=== PATIENT | male | born 2000 | race Caucasian/White ===

== ENCOUNTER 2018-07-04 13:51 | Emergency (ER) | payer BC ==
[2018-07-04] MEDS ORDERED: Sodium Chloride 0.9% 10 ML Syringe FLUSH PRN (14:20)
[2018-07-04] MEDS ORDERED: Sodium Chloride 0.9% 1,000 ML IV ONE ×2 (14:22→14:24)
[2018-07-04] MEDS ORDERED: Ondansetron 4 MG/2 ML SDV IVPUSH ONE (14:23)
[2018-07-04] MEDS ORDERED: Pantoprazole 40 MG Vial IVPUSH ONE (14:28)
[2018-07-04] MEDS ORDERED: cefTRIAXone 2 GM Vial IVPUSH ONE (14:46)
--- NOTE | 2018-07-04 14:51 | EDM.PDOC ---
ED HPI GENERAL MEDICAL PROBLEM - General Chief Complaint: Respiratory Problem Stated Complaint: Fever; Produtive cough; N/V Time Seen by Provider: 07/04/18 13:59 Source of Information: Reports: Patient, Old Records, RN, RN Notes Reviewed History Limitations: Reports: No Limitations - History of Present Illness INITIAL COMMENTS - FREE TEXT/NARRATIVE: Patient presents to the ED at [facility] for productive cough, fevers, and nausea and vomiting that started last week. He was seen by me at the [facility] on 07/01/2018 and was diagnosed and treated for CAP. Patient states since then, he has not been able to eat or drink due to worsening symptoms with nausea and vomiting. He has tried taking his antibiotics but has not been able to keep the pills down. He has not been drinking very much at all. He states he feels acid reflux since not being able to eat. He denies any eye or ear symptoms. His cough is somewhat productive. He feels very fatigue and has mild weakness. He states it is difficulty to walk up and down steps due to feeling weak and fatigued. He denies any diarrhea. No chest pain. SOB with coughing. No focal neurological problems. Diagnostic studies in the clinic showed a normal WBC count of 8.8. Chemistries were normal. Strep was negative. 2V chest revealed a developing RLL Pneumonia. Patient was started on PO Augmentin for 10 days. - Related Data Allergies Allergy/AdvReac Type Severity Reaction Status Date / Time No Known Allergies Allergy Verified 07/04/18 14:41 Home Meds: Home Meds Azithromycin [Zithromax] 250 mg PO DAILY 4 Days #4 tab 07/04/18 [Rx] ISOtretinoin [Claravis] 1 cap PO BID 07/04/18 [History] Past Medical History - Past Health History Medical/Surgical History: Denies Medical/Surgical History Social & Family History - Family History Family Medical History: Noncontributory - Tobacco Use Smoking Status *Q: Never Smoker - Caffeine Use Caffeine Use: Reports: Energy Drinks - Alcohol Use Alcohol Use History: Yes Alcohol Use in Last Twelve Months: Yes Alcohol Use Frequency: Socially - Recreational Drug Use Recreational Drug Use: No Drug Use in Last 12 Months: No - Living Situation & Occupation Living situation: Reports: Single Occupation: Student ED ROS GENERAL - Review of Systems Review Of Systems: See Below Constitutional: Reports: Fever, Chills, Weakness, Fatigue, Decreased Appetite HEENT: Reports: No Symptoms Respiratory: Reports: Cough, Sputum. Denies: Shortness of Breath Cardiovascular: Denies: Chest Pain, Palpitations GI/Abdominal: Reports: Nausea, Vomiting. Denies: Abdominal Pain, Diarrhea Skin: Reports: No Symptoms Neurological: Reports: No Symptoms ED EXAM, GENERAL - Physical Exam Exam: See Below Exam Limited By: No Limitations General Appearance: Alert, No Apparent Distress Eye Exam: Bilateral Eye: Normal Inspection, PERRL Ears: Normal External Exam, Normal Canal, Normal TMs Ear Exam: Bilateral Ear: TM normal Throat/Mouth: Normal Inspection, Normal Oropharynx, No Airway Compromise Neck: Supple Respiratory/Chest: No Respiratory Distress, Decreased Breath Sounds (RLL), Crackles (bibasilar), Rhonchi Cardiovascular: Normal Peripheral Pulses, Regular Rate, Rhythm Peripheral Pulses: 2+: Radial (L), Radial (R) GI/Abdominal: Normal Bowel Sounds, Soft, Non-Tender Neurological: Alert, Oriented Skin Exam: Warm, Dry, Intact, Normal Color Course - Vital Signs Last Recorded V/S: Last Vital Signs Temp 38.3 C H 07/04/18 13:55 Pulse 89 07/04/18 13:55 Resp 16 07/04/18 13:55 BP 113/71 07/04/18 13:55 Pulse Ox 94 L 07/04/18 13:55 - Orders/Labs/Meds Orders: Active Orders 24 hr Category Date Time Status Chest 2V [CR] Stat Exams 07/04/18 14:23 Taken CULTURE BLOOD [BC] Stat Lab 07/04/18 14:32 Received CULTURE BLOOD [BC] Stat Lab 07/04/18 14:38 Received CULTURE URINE [RM] Stat Lab 07/04/18 14:30 Ordered UA W/MICROSCOPIC [URIN] Stat Lab 07/04/18 14:29 Ordered Azithromycin [Take Home: Azithromycin 250 MG, 2 Tab Med 07/04/18 15:19 Once Pack] 1 packet PO ONETIME ONE Sodium Chloride 0.9% [Normal Saline] 1,000 ml Med 07/04/18 14:22 Active IV ONETIME Sodium Chloride 0.9% [Normal Saline] 1,000 ml Med 07/04/18 14:24 Active IV ONETIME Sodium Chloride 0.9% [Saline Flush] Med 07/04/18 14:20 Active 10 ml FLUSH ASDIRECTED PRN Blood Culture x2 Reflex Set [OM.PC] Stat Oth 07/04/18 14:20 Ordered Peripheral IV Insertion Adult [OM.PC] Routine Oth 07/04/18 14:20 Ordered Medication Orders Azithromycin (Take Home: Azithromycin 250 Mg, 2 Tab Pack) 1 packet PO ONETIME ONE Stop: 07/04/18 15:20 Sodium Chloride (Normal Saline) 1,000 mls @ 999 mls/hr IV ONETIME ONE Stop: 07/04/18 15:22 Last Admin: 07/04/18 14:50 Dose: 999 mls/hr Sodium Chloride (Normal Saline) 1,000 mls @ 999 mls/hr IV ONETIME ONE Stop: 07/04/18 15:24 Sodium Chloride (Saline Flush) 10 ml FLUSH ASDIRECTED PRN PRN Reason: Keep Vein Open Labs: Laboratory Tests 07/04/18 07/04/18 07/04/18 Range/Units 14:32 14:32 14:32 WBC 8.3 (4.0-10.0) x10^3/uL RBC 4.82 (4.5-6.0) x10^6/uL Hgb 14.7 (14.0-18.0) g/dL Hct 40.7 (40.0-52.0) % MCV 84.4 (78.0-93.0) fL MCH 30.5 (26.0-32.0) pg MCHC 36.1 H (32.0-36.0) g/dL RDW Coeff of Sindi 11.9 (10.0-15.0) % Plt Count 216 (130-400) x10^3/uL Neut % (Auto) 72.4 (50.0-80.0) % Lymph % (Auto) 16.6 L (25.0-50.0) % Reeves % (Auto) 8.8 (2.0-11.0) % Eos % (Auto) 1.8 (0.0-4.0) % Baso % (Auto) 0.4 (0.2-1.2) % Sodium 135 L (136-145) mmol/L Potassium 3.8 (3.5-5.1) mmol/L Chloride 98 (98-107) mmol/L Carbon Dioxide 27 (21-32) mmol/L Anion Gap 13.8 (10-20) mmol/L BUN 11 (7-18) mg/dL Creatinine 1.0 (0.70-1.30) mg/dL Est Cr Clr Drug Dosing TNP Estimated GFR (MDRD) > 60 Glucose 89 (74-106) mg/dL Lactic Acid 1.0 (0.4-2.0) mmol/L Calcium 8.8 (8.5-10.1) mg/dL Corrected Calcium 9.28 (8.5-10.1) mg/dL Total Bilirubin 0.6 (0.2-1.0) mg/dL AST 21 (15-37) U/L ALT 21 (16-63) U/L Alkaline Phosphatase 69 (46-116) U/L C-Reactive Protein 6.7 H (<=0.9) mg/dL Total Protein 7.6 (6.4-8.2) g/dL Albumin 3.4 (3.4-5.0) g/dL Globulin 4.2 Albumin/Globulin Ratio 0.81 Meds: Medications Generic Name Dose Route Start Last Admin Trade Name Freq PRN Reason Stop Dose Admin Azithromycin 1 packet 07/04/18 15:19 Take Home: Azithromycin 250 Mg, 2 Tab Pack PO 07/04/18 15:20 ONETIME ONE Sodium Chloride 1,000 mls @ 999 mls/hr 07/04/18 14:22 07/04/18 14:50 Normal Saline IV 07/04/18 15:22 999 mls/hr ONETIME ONE Administration Sodium Chloride 1,000 mls @ 999 mls/hr 07/04/18 14:24 Normal Saline IV 07/04/18 15:24 ONETIME ONE Sodium Chloride 10 ml 07/04/18 14:20 Saline Flush FLUSH ASDIRECTED PRN Keep Vein Open Discontinued Medications Generic Name Dose Route Start Last Admin Trade Name Freq PRN Reason Stop Dose Admin Ceftriaxone Sodium 2 gm 07/04/18 14:46 07/04/18 14:55 Rocephin IVPUSH 07/04/18 14:47 2 gm STAT ONE Administration Guaifenesin/Codeine Phosphate 5 ml 07/04/18 15:01 07/04/18 15:08 Robitussin Ac PO 07/04/18 15:02 5 ml ONETIME ONE Administration Ondansetron HCl 4 mg 07/04/18 14:23 07/04/18 14:50 Zofran IVPUSH 07/04/18 14:24 4 mg ONETIME ONE Administration Pantoprazole Sodium 40 mg 07/04/18 14:28 07/04/18 14:51 Protonix Iv IVPUSH 07/04/18 14:29 40 mg ONETIME ONE Administration Promethazine HCl/Codeine 2 packet 07/04/18 15:11 Take Home: Codeine/Prometh 10-6.25 Mg, 2 Pack PO 07/04/18 15:12 ONETIME ONE - Radiology Interpretation Free Text/Narrative:: CXR: RIGHT LOWER LOBE PNEUMONIA SEE SCANNED DOCUMENT IN EMR Departure - Departure Time of Disposition: 15:24 Disposition: Home, Self-Care 01 Condition: Good Clinical Impression: Pneumonia Qualifiers: Pneumonia type: due to unspecified organism Laterality: right Lung location: lower lobe of lung Qualified Code(s): J18.1 - Lobar pneumonia, unspecified organism - Discharge Information *PRESCRIPTION DRUG MONITORING PROGRAM REVIEWED*: Not Applicable *COPY OF PRESCRIPTION DRUG MONITORING REPORT IN PATIENT KATIE: Not Applicable Prescriptions: Azithromycin [Zithromax] 250 mg PO DAILY 4 Days #4 tab Instructions: Community-Acquired Pneumonia, Adult Referrals: Bolivar Byrd NP [Primary Care Provider] - 07/13/18 (RECHECK CHEST XRAY TO ENSOURE RESOLUTION OF PNEUMONIA) Forms: ED Department Discharge - Problem List Review Problem List Initiated/Reviewed/Updated: Yes - My Orders Last 24 Hours: My Active Orders 07/04/18 14:20 Sodium Chloride 0.9% [Saline Flush] 10 ml FLUSH ASDIRECTED PRN Blood Culture x2 Reflex Set [OM.PC] Stat Peripheral IV Insertion Adult [OM.PC] Routine 07/04/18 14:22 Sodium Chloride 0.9% [Normal Saline] 1,000 ml IV ONETIME 07/04/18 14:23 Chest 2V [CR] Stat 07/04/18 14:24 Sodium Chloride 0.9% [Normal Saline] 1,000 ml IV ONETIME 07/04/18 14:29 UA W/MICROSCOPIC [URIN] Stat 07/04/18 14:30 CULTURE URINE [RM] Stat 07/04/18 14:32 CULTURE BLOOD [BC] Stat 07/04/18 14:38 CULTURE BLOOD [BC] Stat 07/04/18 15:19 Azithromycin [Take Home: Azithromycin 250 MG, 2 Tab Pack] 1 packet PO ONETIME ONE - Assessment/Plan Last 24 Hours: My Active Orders 07/04/18 14:20 Sodium Chloride 0.9% [Saline Flush] 10 ml FLUSH ASDIRECTED PRN Blood Culture x2 Reflex Set [OM.PC] Stat Peripheral IV Insertion Adult [OM.PC] Routine 07/04/18 14:22 Sodium Chloride 0.9% [Normal Saline] 1,000 ml IV ONETIME 07/04/18 14:23 Chest 2V [CR] Stat 07/04/18 14:24 Sodium Chloride 0.9% [Normal Saline] 1,000 ml IV ONETIME 07/04/18 14:29 UA W/MICROSCOPIC [URIN] Stat 07/04/18 14:30 CULTURE URINE [RM] Stat 07/04/18 14:32 CULTURE BLOOD [BC] Stat 07/04/18 14:38 CULTURE BLOOD [BC] Stat 07/04/18 15:19 Azithromycin [Take Home: Azithromycin 250 MG, 2 Tab Pack] 1 packet PO ONETIME ONE Assessment:: RIGHT LOWER LOBE PNEUMONIA NAUSEA AND VOMITING DEHYDRATION Plan: WILL HAVE PATIENT STOP TAKING THE AUGMENTIN. SWITCH TO PO AZITHROMYCIN FOR 5 DAYS. START CODEINE/PROMETHAZINE. LOTS OF WATER. REST. COUGH AND DEEP BREATH SEVERAL TIMES AN HOURS. F/U WITH PCP IN 10 DAYS FOR REPEAT CHEST TO ENSURE RESOLUTION OF PNEUMONIA
[2018-07-04] MEDS ORDERED: Codeine/guaiFENesin 100-10 MG/5 ML Syrup 5 ML Cup PO ONE (15:01)
[2018-07-04 15:02] LABS: CHLORIDE,CL 98 mmol/L (98-107); SODIUM,NA 135 mmol/L (136-145)
[2018-07-04 15:03] LABS: ANION GAP 13.8 mmol/L (10-20)
[2018-07-04] MEDS ORDERED: Take Home: Codeine/Promethazine 10-6.25 MG/5 ML Syrup 5 ML, 2 Cup Pack PO ONE (15:11)
[2018-07-04] MEDS ORDERED: Take Home: Azithromycin 250 MG, 2 Tab Pack PO ONE (15:19)
== END 2018-07-04 16:43 | disposition home or self-care (01) ==
LOC: VM.ED 13:51
DX: J18.9 Pneumonia, unspecified organism (principal); E86.0 Dehydration
CPT/HCPCS: 36415; 71046; 80053; 81001; 83605; 85025; 86140; 87040; 87086; 96361; 96374; 96375; 99284; A9270; C9113; J0696; J2405; J7030